=== PATIENT | female | born 1995 | race Two or more races ===

== ENCOUNTER 2017-05-13 09:55 | Observation (INO) | payer MEDICAID ==
[~2017-05-13 09:55] MED LIST: PRENCAP15
== END 2017-05-13 11:05 | disposition home or self-care (01) | DRG 566 ==
LOC: LDRP 09:55
PROVIDERS: ADMIT Specialist; ATTEND Specialist
DX: O42.92 Full-term premature rupture of membranes, unspecified as to length of time between rupture and onset of labor (principal); Z3A.38 38 weeks gestation of pregnancy
CPT/HCPCS: 59025; 81002; G0378